=== PATIENT | female | born 1955 | race Caucasian/White ===

== ENCOUNTER 2017-08-25 09:35 | Emergency (ER) | payer OTHER ==
[~2017-08-25] VITALS: Ht 172.7 cm; Wt 81.6 kg
[2017-08-25 09:51] VITALS: BP 152/88
[2017-08-25] MEDS ORDERED: methylPREDNISolone SOD SUCC 125 MG/2 ML VL ONE (10:28)
[2017-08-25] MEDS ORDERED: KETOROLAC TROMETH 60MG/2ML VIAL IM ONE (10:30)
== END 2017-08-25 10:54 | disposition home or self-care (01) ==
LOC: ER 09:35
DX: S00.83XA Contusion of other part of head, initial encounter (principal); R42 Dizziness and giddiness; W22.8XXA Striking against or struck by other objects, initial encounter; Y93.89 Activity, other specified; Y92.89 Other specified places as the place of occurrence of the external cause; Y99.8 Other external cause status
CPT/HCPCS: 70450; 96372; 99284; J1885; J2930